=== PATIENT | female | born 1935 | race Caucasian/White ===

== ENCOUNTER 2023-12-02 03:48 | Inpatient (IN) ==
[2023-12-02] MEDS: MECLIZINE 25 MG TABLET PO ONE (04:21)
[2023-12-02 04:39] LABS: Basophils # (Auto) 0.04 K/mcL (0.00-0.30); Basophils % (Auto) 0.5 % (0.0-2.0); Eosinophils # (Auto) 0.16 K/mcL (0.00-0.70); Hematocrit 35.2 % (34.1-44.9); Hemoglobin 11.2 g/dL (11.2-15.7); Lymphocytes # (Auto) 2.97 K/mcL (1.50-4.80); Mean Cell Volume 95.1 fL (80.0-100.0); Mean Corpuscular HGB Conc 31.8 g/dL (31.0-36.0); Mean Platelet Volume 11.1 fL (8.8-12.5); Neutrophils % (Auto) 50.4 % (38.0-78.0); Platelet Count 265 K/mcL (140-440); WBC 7.8 K/mcL (4.5-11.0)
[2023-12-02 04:59] LABS: Thyroid Stimulating Hormone 2.33 uIU/mL (0.27-5.01)
[2023-12-02 06:05] LABS: ALT/SGPT < 5 U/L (<40); AST/SGOT 18 U/L (<32); Albumin 3.5 gm/dL (3.2-5.2); Albumin/Globulin Ratio 1.3 (1.0-2.3); Alkaline Phosphatase 69 U/L (39-117); Bilirubin,Total 0.4 mg/dL (0.1-1.0); Blood Urea Nitrogen 23 mg/dL (8-23); Calcium 8.8 mg/dL (8.6-10.4); Carbon Dioxide 22 mmol/L (22-30); Chloride 109 mmol/L (96-108); Globulin 2.6 gm/dL (2.2-3.7); Glomerular Filtration Rate 50; Glucose 111 mg/dL (70-105); Thyroid Stimulating Hormone 2.01 uIU/mL (0.27-5.01)
[2023-12-02 06:44] LABS: Appearance,Urine Slightly Cloudy (Clear); Bilirubin,Urine Negative (Negative); Color,Urine Yellow; Culture Indicated,Urine No; Glucose,Urine (UA) Negative (Negative); Ketones,Urine Negative (Negative); Leukocyte Esterase,Urine Large /uL (Negative); Mucus,Urine FEW /hpf; Nitrate,Urine Positive (Negative); Protein,Urine >=300 mg/dL (Negative); Specific Gravity,Urine 1.025 (1.000-1.035); Urine Blood Moderate ery/mcL (Negative); Urine RBC 92 /hpf (0-3); Urine Squamous Epithelial Cell 8 /hpf (0-4); Urine WBC > 182 /hpf (0-4); Urobilinogen,Urine Normal
[2023-12-02] MEDS: cefTRIAXone 1 GM VIAL IV ONE (07:32)
[2023-12-02] MEDS: KETOROLAC 15 MG/ML VIAL IV ONE (10:52)
[2023-12-02] MEDS ORDERED: BISACODYL 10 MG SUPP.RECT PR PRN (15:51)
[2023-12-02] MEDS ORDERED: ONDANSETRON 4 MG/2 ML VIAL IV PRN (15:51)
[2023-12-02] MEDS ORDERED: MAGNESIUM HYDROXIDE 30 ML ORAL.SUSP PO PRN (15:51)
[2023-12-02] MEDS: 0.9 % SODIUM CHLORIDE 10 ML SYRINGE IV SCH (20:24)
[2023-12-02] MEDS: APIXABAN 5 MG TABLET PO SCH (20:24)
[2023-12-02] MEDS: DOCUSATE SODIUM 100 MG CAPSULE PO SCH (20:24)
[2023-12-02] MEDS: SENNOSIDES 1 TABLET PO SCH (20:24)
[2023-12-03 06:32] LABS: Basophils # (Auto) 0.04 K/mcL (0.00-0.30); Basophils % (Auto) 0.4 % (0.0-2.0); Eosinophils # (Auto) 0.19 K/mcL (0.00-0.70); Hematocrit 36.2 % (34.1-44.9); Hemoglobin 11.4 g/dL (11.2-15.7); Lymphocytes # (Auto) 3.53 K/mcL (1.50-4.80); Lymphocytes % (Auto) 36.4 % (15.5-49.0); Mean Cell Volume 94.8 fL (80.0-100.0); Mean Corpuscular HGB Conc 31.5 g/dL (31.0-36.0); Mean Platelet Volume 9.8 fL (8.8-12.5); Monocytes # (Auto) 0.83 K/mcL (0.10-0.90); Monocytes % (Auto) 8.5 % (1.0-12.0); Neutrophils % (Auto) 52.5 % (38.0-78.0); Platelet Count 209 K/mcL (140-440); RBC 3.82 M/mcL (3.59-5.38); WBC 9.7 K/mcL (4.5-11.0)
[2023-12-03 06:44] LABS: ALT/SGPT < 5 U/L (<40); AST/SGOT 19 U/L (<32); Albumin 3.6 gm/dL (3.2-5.2); Albumin/Globulin Ratio 1.4 (1.0-2.3); Alkaline Phosphatase 69 U/L (39-117); Bilirubin,Total 0.6 mg/dL (0.1-1.0); Blood Urea Nitrogen 22 mg/dL (8-23); Calcium 9.1 mg/dL (8.6-10.4); Carbon Dioxide 22 mmol/L (22-30); Chloride 108 mmol/L (96-108); Globulin 2.5 gm/dL (2.2-3.7); Glomerular Filtration Rate 40; Glucose 100 mg/dL (70-105)
[2023-12-03] MEDS: amLODIPine 5 MG TABLET PO SCH (08:31)
[2023-12-03] MEDS: ATORVASTATIN 40 MG TABLET PO SCH (08:31)
[2023-12-03] MEDS: ACETAMINOPHEN 325 MG TABLET PO PRN (10:31)
[2023-12-03] MEDS ORDERED: OLANZapine 10 MG VIAL IM PRN (12:31)
[2023-12-03] MEDS: OLANZapine 2.5 MG TABLET PO PRN (12:39)
[2023-12-03] MEDS: QUEtiapine 25 MG TABLET PO SCH (20:02)
[2023-12-03] MEDS ORDERED: QUEtiapine 25 MG TABLET PO SCH (21:00)
[2023-12-04 04:37] LABS: Appearance,Urine CLOUDY (Clear); Bilirubin,Urine Negative (Negative); Color,Urine YELLOW; Culture Indicated,Urine Yes; Glucose,Urine (UA) Negative (Negative); Ketones,Urine Negative (Negative); Leukocyte Esterase,Urine 500 /uL (Negative); Nitrate,Urine Negative (Negative); Protein,Urine 100 mg/dL (Negative); Specific Gravity,Urine 1.006 (1.000-1.035); Urine Blood Large ery/mcL (Negative); Urine RBC > 182 /hpf (0-1); Urine Squamous Epithelial Cell 1 /hpf (0-4); Urine WBC > 182 /hpf (0-4); Urobilinogen,Urine Negative
[2023-12-04 05:58] LABS: Basophils # (Auto) 0.04 K/mcL (0.00-0.30); Basophils % (Auto) 0.3 % (0.0-2.0); Eosinophils # (Auto) 0.23 K/mcL (0.00-0.70); Hematocrit 38.3 % (34.1-44.9); Hemoglobin 11.9 g/dL (11.2-15.7); Lymphocytes # (Auto) 3.54 K/mcL (1.50-4.80); Lymphocytes % (Auto) 30.9 % (15.5-49.0); Mean Cell Volume 97.5 fL (80.0-100.0); Mean Corpuscular HGB Conc 31.1 g/dL (31.0-36.0); Mean Platelet Volume 9.4 fL (8.8-12.5); Monocytes # (Auto) 0.97 K/mcL (0.10-0.90); Monocytes % (Auto) 8.5 % (1.0-12.0); Neutrophils % (Auto) 58.1 % (38.0-78.0); Platelet Count 212 K/mcL (140-440); RBC 3.93 M/mcL (3.59-5.38); WBC 11.5 K/mcL (4.5-11.0)
[2023-12-04 06:24] LABS: ALT/SGPT < 5 U/L (<40); AST/SGOT 21 U/L (<32); Albumin 3.8 gm/dL (3.2-5.2); Albumin/Globulin Ratio 1.3 (1.0-2.3); Alkaline Phosphatase 72 U/L (39-117); Bilirubin,Total 0.7 mg/dL (0.1-1.0); Blood Urea Nitrogen 24 mg/dL (8-23); Calcium 9.5 mg/dL (8.6-10.4); Carbon Dioxide 20 mmol/L (22-30); Chloride 107 mmol/L (96-108); Globulin 2.9 gm/dL (2.2-3.7); Glomerular Filtration Rate 37; Glucose 116 mg/dL (70-105)
[2023-12-04] MEDS: METOPROLOL TARTRATE 25 MG TABLET PO SCH (09:39)
[2023-12-04] MEDS: OLANZapine 2.5 MG TABLET PO SCH (09:42)
[2023-12-04] MEDS: LACTATED RINGERS 1,000 ML IV SCH ×2 (13:10→16:16)
[2023-12-04] MEDS ORDERED: LACTATED RINGERS 1,000 ML IV SCH (13:15)
[2023-12-05 06:13] LABS: Basophils # (Auto) 0.06 K/mcL (0.00-0.30); Basophils % (Auto) 0.7 % (0.0-2.0); Eosinophils # (Auto) 0.25 K/mcL (0.00-0.70); Eosinophils % (Auto) 2.8 % (0.0-7.0); Hematocrit 36.5 % (34.1-44.9); Lymphocytes % (Auto) 39.3 % (15.5-49.0); Mean Cell Volume 98.1 fL (80.0-100.0); Mean Corpuscular HGB Conc 30.1 g/dL (31.0-36.0); Mean Platelet Volume 9.9 fL (8.8-12.5); Monocytes # (Auto) 0.83 K/mcL (0.10-0.90); Monocytes % (Auto) 9.3 % (1.0-12.0); Neutrophils % (Auto) 47.7 % (38.0-78.0); Platelet Count 194 K/mcL (140-440); RBC 3.72 M/mcL (3.59-5.38); Red Cell Distribution Width 13.1 % (11.5-14.5); WBC 8.9 K/mcL (4.5-11.0)
[2023-12-05 06:19] LABS: ALT/SGPT < 5 U/L (<40); AST/SGOT 18 U/L (<32); Albumin 3.4 gm/dL (3.2-5.2); Albumin/Globulin Ratio 1.3 (1.0-2.3); Alkaline Phosphatase 63 U/L (39-117); Bilirubin,Total 0.6 mg/dL (0.1-1.0); Blood Urea Nitrogen 29 mg/dL (8-23); Carbon Dioxide 21 mmol/L (22-30); Chloride 108 mmol/L (96-108); Globulin 2.6 gm/dL (2.2-3.7); Glomerular Filtration Rate 31; Glucose 107 mg/dL (70-105)
[2023-12-05] MEDS: LACTATED RINGERS 1,000 ML IV SCH (07:57)
[2023-12-05] MEDS ORDERED: OLANZapine 2.5 MG TABLET PO PRN (11:33)
[2023-12-05] MEDS: OLANZapine 2.5 MG TABLET PO SCH (20:27)
[2023-12-06 06:12] LABS: Basophils # (Auto) 0.04 K/mcL (0.00-0.30); Basophils % (Auto) 0.6 % (0.0-2.0); Eosinophils # (Auto) 0.33 K/mcL (0.00-0.70); Eosinophils % (Auto) 4.6 % (0.0-7.0); Hematocrit 31.5 % (34.1-44.9); Hemoglobin 9.6 g/dL (11.2-15.7); Lymphocytes # (Auto) 2.83 K/mcL (1.50-4.80); Lymphocytes % (Auto) 39.3 % (15.5-49.0); Mean Cell Volume 98.1 fL (80.0-100.0); Mean Corpuscular HGB Conc 30.5 g/dL (31.0-36.0); Mean Platelet Volume 9.8 fL (8.8-12.5); Monocytes # (Auto) 0.62 K/mcL (0.10-0.90); Monocytes % (Auto) 8.6 % (1.0-12.0); Neutrophils % (Auto) 46.8 % (38.0-78.0); Platelet Count 190 K/mcL (140-440); RBC 3.21 M/mcL (3.59-5.38); WBC 7.2 K/mcL (4.5-11.0)
[2023-12-06 06:26] LABS: ALT/SGPT < 5 U/L (<40); AST/SGOT 18 U/L (<32); Albumin 3.2 gm/dL (3.2-5.2); Albumin/Globulin Ratio 1.4 (1.0-2.3); Alkaline Phosphatase 54 U/L (39-117); Bilirubin,Total 0.5 mg/dL (0.1-1.0); Blood Urea Nitrogen 31 mg/dL (8-23); Calcium 8.8 mg/dL (8.6-10.4); Carbon Dioxide 24 mmol/L (22-30); Chloride 108 mmol/L (96-108); Globulin 2.3 gm/dL (2.2-3.7); Glomerular Filtration Rate 31; Glucose 96 mg/dL (70-105)
[2023-12-06] MEDS: OLANZapine 10 MG VIAL IM PRN (23:14)
[2023-12-06] MEDS: METOPROLOL TARTRATE 25 MG TABLET ONE (23:16)
[2023-12-06] MEDS: METOPROLOL TARTRATE 25 MG TABLET PO ONE (23:46)
[2023-12-07] MEDS ORDERED: QUEtiapine 25 MG TABLET PO PRN (00:15)
[2023-12-07] MEDS: QUEtiapine 25 MG TABLET ONE (01:15)
[2023-12-07 08:12] LABS: Basophils # (Auto) 0.05 K/mcL (0.00-0.30); Basophils % (Auto) 0.6 % (0.0-2.0); Eosinophils % (Auto) 1.3 % (0.0-7.0); Hematocrit 36.9 % (34.1-44.9); Hemoglobin 11.6 g/dL (11.2-15.7); Lymphocytes # (Auto) 1.86 K/mcL (1.50-4.80); Lymphocytes % (Auto) 23.4 % (15.5-49.0); Mean Cell Volume 95.3 fL (80.0-100.0); Mean Corpuscular HGB Conc 31.4 g/dL (31.0-36.0); Mean Platelet Volume 10.2 fL (8.8-12.5); Monocytes # (Auto) 0.62 K/mcL (0.10-0.90); Monocytes % (Auto) 7.8 % (1.0-12.0); Neutrophils % (Auto) 66.6 % (38.0-78.0); Platelet Count 236 K/mcL (140-440); RBC 3.87 M/mcL (3.59-5.38); Red Cell Distribution Width 13.1 % (11.5-14.5)
[2023-12-07 08:21] LABS: Blood Urea Nitrogen 25 mg/dL (8-23); Calcium 9.6 mg/dL (8.6-10.4); Carbon Dioxide 24 mmol/L (22-30); Chloride 105 mmol/L (96-108); Glomerular Filtration Rate 33; Glucose 120 mg/dL (70-105)
[2023-12-07] MEDS ORDERED: HALOPERIDOL LACTATE 5 MG/ML VIAL IM PRN (14:24)
[2023-12-07] MEDS: QUEtiapine 25 MG TABLET PO PRN (18:47)
[2023-12-07 20:37] LABS: Blood Urea Nitrogen 32 mg/dL (8-23); Carbon Dioxide 22 mmol/L (22-30); Chloride 107 mmol/L (96-108); Glomerular Filtration Rate 28; Glucose 157 mg/dL (70-105)
[2023-12-09 06:14] LABS: Basophils # (Auto) 0.06 K/mcL (0.00-0.30); Basophils % (Auto) 0.8 % (0.0-2.0); Eosinophils # (Auto) 0.32 K/mcL (0.00-0.70); Eosinophils % (Auto) 4.4 % (0.0-7.0); Hematocrit 31.9 % (34.1-44.9); Hemoglobin 9.8 g/dL (11.2-15.7); Lymphocytes # (Auto) 2.93 K/mcL (1.50-4.80); Lymphocytes % (Auto) 40.3 % (15.5-49.0); Mean Cell Volume 97.3 fL (80.0-100.0); Mean Corpuscular HGB Conc 30.7 g/dL (31.0-36.0); Mean Platelet Volume 9.8 fL (8.8-12.5); Monocytes # (Auto) 0.66 K/mcL (0.10-0.90); Monocytes % (Auto) 9.1 % (1.0-12.0); Neutrophils % (Auto) 45.3 % (38.0-78.0); Platelet Count 189 K/mcL (140-440); RBC 3.28 M/mcL (3.59-5.38); Red Cell Distribution Width 13.1 % (11.5-14.5); WBC 7.3 K/mcL (4.5-11.0)
[2023-12-09 07:25] LABS: Blood Urea Nitrogen 36 mg/dL (8-23); Carbon Dioxide 23 mmol/L (22-30); Chloride 107 mmol/L (96-108); Glomerular Filtration Rate 28; Glucose 96 mg/dL (70-105)
[2023-12-09] MEDS: METOPROLOL TARTRATE 25 MG TABLET PO SCH (09:34)
== END 2023-12-09 11:43 | DRG 309 ==
LOC: ED 03:48 → MEDSUR 03:48 → ICU 12-03 15:05
PROVIDERS: ADMIT Student in an Organized Health Care Education/Training Program; ATTEND Student in an Organized Health Care Education/Training Program